=== PATIENT | female | born 1990 | race American Indian/Alaskan Native ===

== ENCOUNTER 2016-12-31 09:16 | Emergency (ER) | payer OTHER ==
[2016-12-31 09:26] VITALS: BP 137/80
--- NOTE | 2016-12-31 10:12 | XRay Report ---
LEFT WRIST, 4 views: HISTORY: Left wrist injury, fall. Routine views demonstrate the carpal bones to be well mineralized with well preserved bony mineralization and interosseous joint spaces. The carpal and adjacent articular bones have normal contours. The surrounding soft tissues are unremarkable. IMPRESSION: No abnormality detected.
[2016-12-31] MEDS ORDERED: MOTRIN PO ONE (12:18)
--- NOTE | 2016-12-31 12:22 | Emergency Department Report ---
ED Upper Extremity Inj HPI - General Chief Complaint: Extremity Injury, Upper Stated Complaint: LEFT HAND INJURY Time Seen by Provider: 12/31/16 11:33 Source: patient Mode of arrival: Ambulatory Limitations: No Limitations - History of Present Illness Initial Comments: This is a 26-year-old female nontoxic, well nourished in appearance, no acute signs of distress presents to the ED complaining of left wrist pain and hand 1 day. Patient states she was rollerskating and lip and fell trying to break fall with her left hand. Patient denies any other extremity injury. Based discussed. Has taking level of 10 out of 10. Patient was complaining of left hand/wrist swelling. Patient denies any numbness, tingling, decreased range of motion, fever, chills, nausea, vomiting, chest pain, shortness of breath, headache or stiff neck. Patient denies any head trauma or loss of consciousness. Patient denies syncope. Patient denies any drug allergies. Medical history includes hypertension. MD Complaint: Injury to:: left, wrist, hand -: Gradual, days(s) (1) Other Extremity Injury: Hand: Left, Wrist: Left Other Injuries: none Place: outdoors Severity scale (0 -10): 10 Improves With: immobilization Worsens With: movement of extremity Context: fall, direct blow Associated Symptoms: denies other symptoms. denies: weakness, numbness, neck pain, suspects foreign body, nausea/vomiting, heard/felt popping sensat - Related Data Previous Rx's Medication Instructions Recorded Last Taken Type Ibuprofen [Motrin 600 MG tab] 600 mg PO Q8H PRN #30 tablet 12/31/16 Unknown Rx Allergies Allergy/AdvReac Type Severity Reaction Status Date / Time No Known Allergies Allergy Unverified 12/31/16 09:22 ED Review of Systems ROS: Stated complaint: LEFT HAND INJURY Other details as noted in HPI Constitutional: denies: chills, fever Eyes: denies: eye pain, eye discharge, vision change ENT: denies: ear pain, throat pain Respiratory: denies: cough, shortness of breath, wheezing Cardiovascular: denies: chest pain, palpitations Endocrine: no symptoms reported Gastrointestinal: denies: abdominal pain, nausea, diarrhea Genitourinary: denies: urgency, dysuria, discharge Musculoskeletal: denies: back pain, joint swelling, arthralgia Skin: denies: rash, lesions Neurological: denies: headache, weakness, paresthesias Psychiatric: denies: anxiety, depression Hematological/Lymphatic: denies: easy bleeding, easy bruising ED Past Medical Hx - Past Medical History Previous Medical History?: Yes Hx Hypertension: Yes (no meds) - Surgical History Past Surgical History?: No - Social History Smoking Status: Never Smoker Substance Use Type: Alcohol, Non Opiate Pain - Medications Home Medications: Home Medications Medication Instructions Recorded Confirmed Last Taken Type Ibuprofen [Motrin 600 MG tab] 600 mg PO Q8H PRN #30 tablet 12/31/16 Unknown Rx ED Physical Exam - General Limitations: No Limitations General appearance: alert, in no apparent distress - Head Head exam: Present: atraumatic, normocephalic, normal inspection - Eye Eye exam: Present: normal appearance, PERRL, EOMI. Absent: scleral icterus, conjunctival injection, nystagmus, periorbital swelling, periorbital tenderness Pupils: Present: normal accommodation - ENT ENT exam: Present: normal exam, normal orophraynx, mucous membranes moist, TM's normal bilaterally, normal external ear exam - Neck Neck exam: Present: normal inspection, full ROM. Absent: tenderness, meningismus, lymphadenopathy, thyromegaly - Respiratory Respiratory exam: Present: normal lung sounds bilaterally. Absent: respiratory distress, wheezes, rales, rhonchi, stridor, chest wall tenderness, accessory muscle use, decreased breath sounds, prolonged expiratory - Cardiovascular Cardiovascular Exam: Present: regular rate, normal rhythm, normal heart sounds. Absent: systolic murmur, diastolic murmur, rubs, gallop - GI/Abdominal GI/Abdominal exam: Present: soft, normal bowel sounds. Absent: distended, tenderness, guarding, rebound, rigid, diminished bowel sounds - Rectal Rectal exam: Present: deferred - Extremities Exam Extremities exam: Present: normal inspection, full ROM, tenderness, normal capillary refill. Absent: pedal edema, joint swelling, calf tenderness - Expanded Upper Extremity Exam Left General: Present: normal inspection Shoulder Exam: Present: normal inspection, full ROM Upper Arm exam: Present: normal inspection, full ROM Elbow exam: Present: normal inspection, full ROM Forearm Wrist exam: Present: normal inspection, full ROM. Absent: tenderness, swelling, abrasion, laceration, ecchymosis, deformity, crepidus, dislocation, erythema, tenderness over anatomical snuff box, pain with axial thumb loading Hand Wrist exam: Present: normal inspection, full ROM, tenderness, swelling. Absent: abrasion, laceration, ecchymosis, deformity, crepidus, dislocation, erythema, amputation, nail avulsion, subungual hematoma Neuro motor exam: Present: wrist extension intact, thumb opposition intact, thumb IP flexion intact, thumb adduction intact, fingers 2-5 abduction intact Neurosensory exam: Present: 2-point discrimination, radial nerve intact, ulnar nerve intact, median nerve intact Vascular: Present: vascular compromise, normal capillary refill, radial pulse, brachial pulse, ulnar pulse - Back Exam Back exam: Present: normal inspection, full ROM. Absent: tenderness, CVA tenderness (R), CVA tenderness (L), muscle spasm, paraspinal tenderness, vertebral tenderness, rash noted - Neurological Exam Neurological exam: Present: alert, oriented X3, CN II-XII intact, normal gait, reflexes normal - Psychiatric Psychiatric exam: Present: normal affect, normal mood - Skin Skin exam: Present: warm, dry, intact, normal color. Absent: rash ED Course Vital Signs 12/31/16 09:22 Temperature 98.1 F Pulse Rate 100 H Respiratory 16 Rate Blood Pressure 137/80 O2 Sat by Pulse 100 Oximetry - Reevaluation(s) Reevaluation #1: 12/31/16 12:22 Patient is speaking in full sentences with no signs of distress noted. ED Medical Decision Making - Radiology Data Radiology results: report reviewed interpreted by me: Dr. Baez Normal examination. - Medical Decision Making 26-yaer-old female that presents with left hand strain s/p fall. Pt was examined by me and pt is stable. Xray negative of any fracture or dislocation. Normal ROM of digits and wrist. Neurovascular intake. Normal cap refil. Pt received ice and motrin in the ED. Pt was notified of xray results with no questions noted. Pt instructed to rest, ice, and elevate extremity. Pt instructed to f/u with ortho in 3-5days and patient received wrist Velcro splint. At time time of discharge, the patient does not seem toxic or ill in appearance. No acute signs of distress noted. Patient agrees to discharge treatment plan of care. No further questions noted by the patient. Critical care attestation.: If time is entered above; I have spent that time in minutes in the direct care of this critically ill patient, excluding procedure time. ED Disposition Clinical Impression: Wrist strain Qualifiers: Encounter type: initial encounter Laterality: left Qualified Code(s): S66.912A - Strain of unspecified muscle, fascia and tendon at wrist and hand level, left hand, initial encounter Hand strain Qualifiers: Encounter type: initial encounter Laterality: left Qualified Code(s): S66.912A - Strain of unspecified muscle, fascia and tendon at wrist and hand level, left hand, initial encounter Disposition: TO HOME OR SELFCARE Is pt being admited?: No Does the pt Need Aspirin: No Condition: Stable Instructions: RICE Therapy (ED), Wrist Injury (ED), Ibuprofen (By mouth), Hand Sprain (ED) Additional Instructions: Follow-up with Dr. Lucas or another orthopedic doctor in 3-5 days or if symptoms worsen and continue return to emergency room as soon as possible possible. Prescriptions: Ibuprofen [Motrin 600 MG tab] 600 mg PO Q8H PRN #30 tablet PRN Reason: Pain Referrals: PRIMARY CAREMD [Primary Care Provider] - 3-5 Days SANJUANA LUCAS MD [Staff Physician] - 3-5 Days [facility] [Outside] - 3-5 Days [facility] [Outside] - 3-5 Days Forms: Work/School Release Form(ED)
== END 2016-12-31 13:02 | disposition home or self-care (01) ==
LOC: ED 09:16
DX: S66.912A Strain of unspecified muscle, fascia and tendon at wrist and hand level, left hand, initial encounter (principal); I10 Essential (primary) hypertension; V00.121A Fall from non-in-line roller-skates, initial encounter; Y93.51 Activity, roller skating (inline) and skateboarding; Y92.89 Other specified places as the place of occurrence of the external cause; Y99.8 Other external cause status
CPT/HCPCS: 99283

== ENCOUNTER 2017-01-17 14:08 | Outpatient (CLI) | payer OTHER ==
--- NOTE | 2017-01-17 15:43 | XRay Report ---
Left hand 3 views: History: Displaced fracture of neck of third mid carpal left hand. Findings: No bony or articular abnormality. No fracture or dislocation no periosteal reaction. Impression: Essentially negative left hand.
== END 2017-01-17 14:09 | disposition home or self-care (01) ==
LOC: XRAY 14:08
PROVIDERS: ATTEND Orthopaedic Surgery
DX: S62.333A Displaced fracture of neck of third metacarpal bone, left hand, initial encounter for closed fracture (principal); X58.XXXA Exposure to other specified factors, initial encounter; Y93.89 Activity, other specified; Y92.89 Other specified places as the place of occurrence of the external cause; Y99.8 Other external cause status

== ENCOUNTER 2017-05-09 16:34 | Emergency (ER) | payer OTHER ==
[2017-05-09] MEDS ORDERED: MOTRIN PO ONE (18:20)
--- NOTE | 2017-05-09 18:32 | Emergency Department Report ---
Chief Complaint: Pain General Stated Complaint: BODY PAIN/LOW BG Time Seen by Provider: 05/09/17 18:23 - HPI History of Present Illness: 26 yo female presents with body aches and cough. Near syncope at place of work. EMS evaluation revealed hypoglycemia. Chest pain with deep cough. - Exam Vital Signs: Vital Signs 05/09/17 05/09/17 16:48 18:27 Temperature 99.4 F Pulse Rate 115 H Respiratory 20 16 Rate Blood Pressure 151/88 O2 Sat by Pulse 100 Oximetry MSE screening note: Focused history and physical exam performed. Due to findings the following was ordered: ED Disposition for MSE Condition: Stable
--- NOTE | 2017-05-09 19:19 | XRay Report ---
FINAL REPORT EXAM: XR CHEST ROUTINE 2V HISTORY: cough TECHNIQUE: Two view chest PA and lateral PRIORS: None. FINDINGS: Cardiac and mediastinal contours are unremarkable. No focal pulmonary infiltrate is identified. No pleural fluid collection seen. Pulmonary vasculature is unremarkable. IMPRESSION: Negative two-view chest
[2017-05-09] MEDS ORDERED: ZOFRAN ODT PO ONE (19:57)
[2017-05-09] MEDS ORDERED: NORCO 5/325 PO ONE (19:57)
--- NOTE | 2017-05-09 20:03 | Emergency Department Report ---
ED Syncope HPI - General Chief Complaint: Pain General Stated Complaint: BODY PAIN/LOW BG Time Seen by Provider: 05/09/17 18:23 Source: patient, family - History of Present Illness Initial Comments: 26 yo female presents with body aches and cough. She reports that she's been having chills and body aches 8-9 out of 10. She says she's never had this in the past. Patient said that she passed out and when she woke up she saw people for her and was trying to wake her up. She came by ambulance and they report that patient had low blood sugar but none reported and records. Denies any urinary burning frequency and urgency. Denies any abdominal or back pain. Reports slight headache the frontal area without any vomiting but reports some nausea. Reports cough, runny nose and congestion but denies any chest pain. positive shortness of breath. No medication taken. Patient that she has a history of 5 blood pressure but she is not on any medication. Denies control. Denies any history of blood clots personally or in her family, denies recent long distance travel for 3 or more hours, denies any swelling today or any clotting disorders. Timing/Prior Episodes: single episode today Precipitating Factors: Positive: lightheadedness, nausea, pain, rapid heart beat. Negative: blurred vision, confusion, diaphoresis, injury Context: sitting, coughing Loss of Consciousness: unsure Current Symptoms: headache, nausea, weakness, other (reports flulike symptoms). denies: blurred vision, chest pain, diaphoresis, dizziness, injury, lightheadedness, loss of bladder control, loss of bowel control, motionless, pale, shallow/rapid breathing, weak/absent pulse - Related Data Allergies/Adverse Reactions: Allergies No Known Allergies Allergy (Unverified 12/31/16 09:22) Home Medications: Ambulatory Orders Ibuprofen [Motrin 600 MG tab] 600 mg PO Q8H PRN #30 tablet 12/31/16 Cetirizine HCl [ZyrTEC] 10 mg PO 10 #10 capsule 05/09/17 Fluticasone [Flonase] 1 spray NS QDAY #10 bottle 05/09/17 Ibuprofen [Motrin] 600 mg PO Q8H PRN #12 tablet 05/09/17 Promethazine [Phenergan TAB] 25 mg PO Q6HR PRN #12 tab 05/09/17 ED Review of Systems ROS: Stated complaint: BODY PAIN/LOW BG Other details as noted in HPI Comment: All other systems reviewed and negative Constitutional: chills, fever, weakness Eyes: denies: eye discharge ENT: congestion. denies: ear pain, throat pain Respiratory: cough, shortness of breath. denies: orthopnea, SOB with exertion, SOB at rest, stridor, wheezing Cardiovascular: denies: chest pain, palpitations, dyspnea on exertion, edema, syncope, paroxysmal nocturnal dyspnea Gastrointestinal: nausea. denies: abdominal pain, vomiting, diarrhea, constipation, hematemesis, melena, hematochezia Genitourinary: denies: urgency, dysuria, frequency, hematuria, discharge, abnormal menses Musculoskeletal: myalgia. denies: back pain, joint swelling, arthralgia Skin: denies: rash Neurological: headache, weakness. denies: numbness, paresthesias, confusion, abnormal gait, vertigo ED Past Medical Hx - Past Medical History Previous Medical History?: Yes Hx Hypertension: Yes (no meds) Additional medical history: right arm pain and diff to bend right elbow, 2 miscarriages - Surgical History Past Surgical History?: No - Family History Family history: hypertension - Social History Smoking Status: Never Smoker Substance Use Type: Non Opiate Pain - Medications Home Medications: Home Medications Medication Instructions Recorded Confirmed Last Taken Type Ibuprofen [Motrin 600 MG tab] 600 mg PO Q8H PRN #30 tablet 12/31/16 Unknown Rx Cetirizine HCl [ZyrTEC] 10 mg PO 10 #10 capsule 05/09/17 Unknown Rx Fluticasone [Flonase] 1 spray NS QDAY #10 bottle 05/09/17 Unknown Rx Ibuprofen [Motrin] 600 mg PO Q8H PRN #12 tablet 05/09/17 Unknown Rx Promethazine [Phenergan TAB] 25 mg PO Q6HR PRN #12 tab 05/09/17 Unknown Rx ED Physical Exam - General Limitations: No Limitations General appearance: alert, in no apparent distress - Head Head exam: Present: atraumatic, normocephalic, normal inspection, other (normal exam) - Eye Eye exam: Present: normal appearance, PERRL, EOMI. Absent: conjunctival injection, nystagmus, periorbital swelling, periorbital tenderness Pupils: Present: normal accommodation - ENT ENT exam: Present: normal exam, normal orophraynx, mucous membranes moist, TM's normal bilaterally, normal external ear exam - Neck Neck exam: Present: normal inspection, full ROM, other (no C-spine tenderness). Absent: tenderness, meningismus, lymphadenopathy, thyromegaly - Respiratory Respiratory exam: Present: normal lung sounds bilaterally. Absent: respiratory distress, chest wall tenderness, accessory muscle use - Cardiovascular Cardiovascular Exam: Present: normal rhythm, tachycardia, normal heart sounds. Absent: systolic murmur, diastolic murmur - GI/Abdominal GI/Abdominal exam: Present: soft, normal bowel sounds. Absent: distended, tenderness, guarding, rebound, rigid, organomegaly, mass, bruit, pulsatile mass , hernia - Extremities Exam Extremities exam: Present: normal inspection, full ROM, normal capillary refill , other (no clubbing, cyanosis or edema. +2 pulses of all extremities and no neurovascular compromise. No bruising, laceration or contusion to extremities. +5/5 movement of all extremities.). Absent: tenderness, pedal edema, joint swelling, calf tenderness - Back Exam Back exam: Present: normal inspection, full ROM, other (ambulates without any difficulties). Absent: tenderness, CVA tenderness (R), CVA tenderness (L), muscle spasm, paraspinal tenderness, vertebral tenderness, rash noted - Neurological Exam Neurological exam: Present: alert, oriented X3, normal gait, reflexes normal. Absent: motor sensory deficit - Expanded Neurological Exam Expanded Neurological exam: Absent: innattentive, memory loss-remote event, memory loss- recent event, ataxia, receptive aphasia, expressive aphasia, total aphasia, tremor, protecting the airway Patient oriented to: Present: person, place, time Speech: Present: fluid speech Cranial nerves: EOM's Intact: Normal, Gag Reflex: Normal, Tongue Deviation: Normal, Nystagmus: Normal, Facial Sensation: Normal Cerebellar function: [place]: Normal Upper motor neuron: Pronator Drift: Normal, Sensory Extinction: Normal Sensory exam: Upper Extremity Light Touch: Normal, Upper Extremity Pin Prick: Normal, Upper Extremity Temperature: Normal, UE 2 Point Discrimination: Normal, Lower Extremity Light Touch: Normal, Lower Extremity Pin Prick: Normal Motor strength exam: RUE: 5, LUE: 5, RLE: 5, LLE: 5 DTR: bicep (R): 2+, bicep (L): 2+, tricep (R): 2+, tricep (L): 2+, knee (R): 2+ , knee (L): 2+, ankle (R): 2+, ankle (L): 2+ Best Eye Response ([place]): (4) open spontaneously Best Motor Response ([place]): (6) obeys commands Best Verbal Response ([place]): (5) oriented Hair Total: 15 - Psychiatric Psychiatric exam: Present: normal affect, normal mood - Skin Skin exam: Present: warm, dry, intact, normal color. Absent: rash ED Course Vital Signs 05/09/17 05/09/17 05/09/17 16:48 18:27 20:25 Temperature 99.4 F Pulse Rate 115 H Respiratory 20 16 18 Rate Blood Pressure 151/88 Blood Pressure [Left] O2 Sat by Pulse 100 Oximetry 05/09/17 22:38 Temperature 98.1 F Pulse Rate 71 Respiratory 18 Rate Blood Pressure Blood Pressure 117/75 [Left] O2 Sat by Pulse 100 Oximetry - Reevaluation(s) Reevaluation #1: 05/09/17 19:40 Patient received ibuprofen 800 mg and triage area, her pain was not controlled so she received hydrocodone 5/325 milligrams by mouth and Zofran 8 mg ODT. Patient orally hydrated and tolerated well. She says she is feeling better. Reevaluation #2: 05/09/17 22:16 Patient remained stable throughout ED stay CT scan of the head negative for any acute extracranial or intracranial processes EKG normal sinus rhythm at 76, CBC , BMP, d-dimer and urinalysis to include test stable. Chest x-ray stable. Still awaiting an influenza test. Patient able to drink plenty of fluids to include juice and actually ate without any nausea or vomiting. She is able to stand without any dizziness. Reevaluation #3: 05/09/17 23:05 Patient remained stable she's been ambulated without any difficulties. She is ready to go. Influenza A and B is negative ED Medical Decision Making - Lab Data Result diagrams: 05/09/17 20:06 05/09/17 20:06 Lab Results 05/09/17 05/09/17 05/09/17 Range/Units 20:06 20:06 20:25 WBC 7.6 (4.5-11.0) K/mm3 RBC 4.00 (3.65-5.03) M/mm3 Hgb 10.9 (10.1-14.3) gm/dl Hct 33.2 (30.3-42.9) % MCV 83 (79-97) fl MCH 27 L (28-32) pg MCHC 33 (30-34) % RDW 17.7 H (13.2-15.2) % Plt Count 393 (140-440) K/mm3 Lymph % (Auto) 27.7 (13.4-35.0) % [place] % (Auto) 7.3 (0.0-7.3) % Eos % (Auto) 0.4 (0.0-4.3) % Baso % (Auto) 0.8 (0.0-1.8) % Lymph # 2.1 (1.2-5.4) K/mm3 [place] # 0.6 (0.0-0.8) K/mm3 Eos # 0.0 (0.0-0.4) K/mm3 Baso # 0.1 (0.0-0.1) K/mm3 Seg Neutrophils % 63.8 (40.0-70.0) % Seg Neutrophils # 4.9 (1.8-7.7) K/mm3 D-Dimer 143.40 (0-234) ng/mlDDU Sodium 138 (137-145) mmol/L Potassium 4.3 (3.6-5.0) mmol/L Chloride 98.1 (98-107) mmol/L Carbon Dioxide 25 (22-30) mmol/L Anion Gap 19 mmol/L BUN 8 (7-17) mg/dL Creatinine 0.7 (0.7-1.2) mg/dL Estimated GFR > 60 ml/min BUN/Creatinine Ratio 11 % Glucose 83 (65-100) mg/dL Calcium 8.6 (8.4-10.2) mg/dL Urine Color (Yellow) Urine Turbidity (Clear) Urine pH (5.0-7.0) Ur Specific [place] (1.003-1.030) Urine Protein (Negative) mg/dL Urine Glucose (UA) (Negative) mg/dL Urine Ketones (Negative) mg/dL Urine Blood (Negative) Urine Nitrite (Negative) Ur Reducing Substances Urine Bilirubin (Negative) Urine Ictotest Urine Urobilinogen (<2.0) mg/dL Ur Leukocyte Esterase (Negative) Urine WBC (Auto) (0.0-6.0) /HPF Urine RBC (Auto) (0.0-6.0) /HPF Urine HCG, Qual (Negative) 05/09/17 Range/Units Unknown WBC (4.5-11.0) K/mm3 RBC (3.65-5.03) M/mm3 Hgb (10.1-14.3) gm/dl Hct (30.3-42.9) % MCV (79-97) fl MCH (28-32) pg MCHC (30-34) % RDW (13.2-15.2) % Plt Count (140-440) K/mm3 Lymph % (Auto) (13.4-35.0) % [place] % (Auto) (0.0-7.3) % Eos % (Auto) (0.0-4.3) % Baso % (Auto) (0.0-1.8) % Lymph # (1.2-5.4) K/mm3 [place] # (0.0-0.8) K/mm3 Eos # (0.0-0.4) K/mm3 Baso # (0.0-0.1) K/mm3 Seg Neutrophils % (40.0-70.0) % Seg Neutrophils # (1.8-7.7) K/mm3 D-Dimer (0-234) ng/mlDDU Sodium (137-145) mmol/L Potassium (3.6-5.0) mmol/L Chloride (98-107) mmol/L Carbon Dioxide (22-30) mmol/L Anion Gap mmol/L BUN (7-17) mg/dL Creatinine (0.7-1.2) mg/dL Estimated GFR ml/min BUN/Creatinine Ratio % Glucose (65-100) mg/dL Calcium (8.4-10.2) mg/dL Urine Color Red (Yellow) Urine Turbidity Clear (Clear) Urine pH 7.0 (5.0-7.0) Ur Specific [place] 1.008 (1.003-1.030) Urine Protein <15 mg/dl (Negative) mg/dL Urine Glucose (UA) Neg (Negative) mg/dL Urine Ketones Neg (Negative) mg/dL Urine Blood Neg (Negative) Urine Nitrite Neg (Negative) Ur Reducing Substances Not Reportable Urine Bilirubin Neg (Negative) Urine Ictotest Not Reportable Urine Urobilinogen < 2.0 (<2.0) mg/dL Ur Leukocyte Esterase Neg (Negative) Urine WBC (Auto) < 1.0 (0.0-6.0) /HPF Urine RBC (Auto) < 1.0 (0.0-6.0) /HPF Urine HCG, Qual Negative (Negative) - EKG Data -: EKG Interpreted by Me (attending physician) EKG shows normal: sinus rhythm (76 bpm) Rate: normal - EKG Data Interpretation: no acute changes, normal EKG - Radiology Data Radiology results: report reviewed CT scan of the brain revealed no acute extracranial or intracranial processes. Chest x-ray reveals no acute cardiopulmonary processes - Medical Decision Making ED course: Care status post syncopal episode at work today. She complained of generalized pain all over. 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 She denies any vomiting. Lab work to include chemistry, CBC, urinalysis test, d- dimer were all within normal limits. Influenza A and B-. CT scan of the head/ brain without contrast within normal limits and chest x-ray within normal limits. Patient was given Motrin 800 mg after being screened for generalized pain. She was given [place] 5/325 2 tablets and 8 mg ODT which she says she felt better. Patient able to tolerate oral liquids in the emergency room without any nausea or vomiting. She is able to ambulate without any complaints of dizziness or any abnormality in her gait. Neurological exam is intact. Patient with acute viral syndrome, fever, syncope and body aches. I discussed all lab work and diagnostic results the patient and she voiced understanding. I discussed the patient she needs to rest for couple days and increase her fluid intake and to follow up with her primary care physician and 2 days. Patient discharged home with prescriptions for Zyrtec, Flonase, Motrin and Phenergan Critical care attestation.: If time is entered above; I have spent that time in minutes in the direct care of this critically ill patient, excluding procedure time. ED Disposition Clinical Impression: Syncope and collapse, Nausea alone, Fever in adult, URI with cough and congestion, Acute viral syndrome Disposition: DC-01 TO HOME OR SELFCARE Is pt being admited?: No Does the pt Need Aspirin: No Condition: Stable Instructions: Fever in Adults (ED), Syncope (ED), Upper Respiratory Infection ( ED), Viral Syndrome (ED) Additional Instructions: Please increase her fluid intake to 2-3 L of water to include orange juice and cranberry juice daily Take medication as prescribed Follow-up the primary care physician tomorrow status post syncopal episode Please return to emergency room immediately if symptoms return and/or if he cannot get appointment with primary care and having dizziness, nausea, fever Prescriptions: Cetirizine HCl [ZyrTEC] 10 mg PO 10 #10 capsule Fluticasone [Flonase] 1 spray NS QDAY #10 bottle Ibuprofen [Motrin] 600 mg PO Q8H PRN #12 tablet PRN Reason: Pain Promethazine [Phenergan TAB] 25 mg PO Q6HR PRN #12 tab PRN Reason: Nausea Referrals: PRIMARY CAREMD [Primary Care Provider] - 05/10/17 [facility]Outside[facility] - 05/10/17 Forms: Accompanied Note, Work/School Release Form(ED)
[2017-05-09 20:16] LABS: Basophils # (Auto) 0.1 K/mm3 (0.0-0.1); Basophils % (Auto) 0.8 % (0.0-1.8); Eosinophils % (Auto) 0.4 % (0.0-4.3); Hematocrit 33.2 % (30.3-42.9); Hemoglobin 10.9 gm/dl (10.1-14.3); Lymphocytes # (Auto) 2.1 K/mm3 (1.2-5.4); Lymphocytes % (Auto) 27.7 % (13.4-35.0); Mean Corpuscular HGB Conc 33 % (30-34); Mean Corpuscular Hemoglobin 27 pg (28-32); Mean Corpuscular Volume 83 fl (79-97); Monocytes # (Auto) 0.6 K/mm3 (0.0-0.8); Monocytes % (Auto) 7.3 % (0.0-7.3); Platelet Count 393 K/mm3 (140-440); Red Cell Distribution Width 17.7 % (13.2-15.2)
[2017-05-09 20:44] LABS: BUN/Creatinine Ratio 11; Blood Urea Nitrogen 8 mg/dL (7-17); Calcium 8.6 mg/dL (8.4-10.2); Hemolysis Index 23
[2017-05-09 20:47] LABS: HCG Qualitative,Urine Negative (Negative)
[2017-05-09 20:48] LABS: Bilirubin,Urine NEG (Negative); Blood,Urine NEG (Negative); Color,Urine Red (Yellow); Nitrite,Urine NEG (Negative); Protein,Urine <15 mg/dL mg/dL (Negative); RBC,Urine < 1.0 /HPF (0.0-6.0); Urobilinogen,Urine < 2.0 mg/dL (<2.0)
[2017-05-09 20:49] LABS: WBC,Urine < 1.0 /HPF (0.0-6.0)
--- NOTE | 2017-05-09 21:37 | Cat Scan Report ---
FINAL REPORT EXAM: CT HEAD/BRAIN WO CON HISTORY: syncope TECHNIQUE: CT head without contrast PRIORS: None. FINDINGS: No acute intra-axial or extra-axial hemorrhage is identified. There is no evidence of midline shift or mass effect. The ventricles and sulci are within normal limits. Kaur-white matter differentiation is intact. No acute parenchymal abnormalities seen. Bony calvarium is grossly intact. Visualized portions of the mastoids and paranasal sinuses are unremarkable. IMPRESSION: Negative CT head
[2017-05-09 22:39] VITALS: BP 117/75
== END 2017-05-09 23:15 | disposition home or self-care (01) ==
LOC: ED 16:34
DX: R55 Syncope and collapse (principal); R11.0 Nausea; R50.9 Fever, unspecified; J06.9 Acute upper respiratory infection, unspecified; B34.9 Viral infection, unspecified; I10 Essential (primary) hypertension
CPT/HCPCS: 36415; 70450; 71046; 80048; 81001; 81025; 85025; 85379; 87400; 93005; 93010; Q0162

== ENCOUNTER 2017-11-15 15:39 | Outpatient (CLI) | payer OTHER ==
--- NOTE | 2017-11-16 08:44 | Vascular Lab Report ---
The Left Lower Extremity Venous Duplex Study: Reason for Exam: Pain and swelling of the left lower extremity. Comments on the Right: A limited duplex study was done of the proximal veins of the right lower extremity. All veins visualized are freely compressible without evidence of internal echogenicity. Flow is spontaneous and phasic throughout. No evidence of acute or chronic thrombus is seen in any of the vessels visualized. Comments on the Left: All veins visualized are freely compressible without evidence of internal echogenicity. Flow is spontaneous and phasic throughout. No evidence of acute or chronic thrombus is seen in any of the vessels visualized. Impression: No evidence of acute or chronic deep venous thrombosis in the left lower extremity.
== END 2017-11-15 15:40 | disposition home or self-care (01) ==
LOC: VAS 15:39
PROVIDERS: ATTEND Podiatrist Foot & Ankle Surgery
DX: M79.89 Other specified soft tissue disorders (principal); M79.662 Pain in left lower leg; I10 Essential (primary) hypertension